=== PATIENT | male | born 1935 | race Caucasian/White ===

== ENCOUNTER → 2017-09-08 | Outpatient (CLI) | payer MEDICARE, OTHER | END | disposition home or self-care (01) | LOC: CFH 10:20 | PROVIDERS: ATTEND Internal Medicine | DX: M51.16 Intervertebral disc disorders with radiculopathy, lumbar region (principal); M41.86 Other forms of scoliosis, lumbar region; M48.061 Spinal stenosis, lumbar region without neurogenic claudication; M79.605 Pain in left leg | CPT/HCPCS: 72148; 72170 ==

== ENCOUNTER 2019-08-29 16:28 | Observation (INO) | payer MEDICARE, OTHER ==
[~2019-08-29] VITALS: Ht 185.4 cm; Wt 97.7 kg
[2019-08-29 17:19] LABS: MEAN CORPUSCULAR HEMOGLOBIN 31.3 pg (27.5-34.5); MEAN CORPUSCULAR HGB CONC 32.8 g/dL (33.2-36.2); MEAN CORPUSCULAR VOLUME 95.4 fL (81-97); MEAN PLATELET VOLUME 8.1 fL (7.4-10.4); PLATELET COUNT 307 x10^3/uL (130-400); RED BLOOD COUNT 4.61 x10^6/uL (4.38-5.82); RED CELL DISTRIBUTION WIDTH 13.4 % (9.4-14.8)
[2019-08-29 17:23] LABS: ALBUMIN 4.1 g/dL (3.4-5.0); ANION GAP 7 mmol/L (5-15); CALCIUM 8.5 mg/dL (8.5-10.1); CHLORIDE 105 mmol/L (98-107); CREATININE 0.96 mg/dL (0.7-1.3)
[2019-08-29 17:27] LABS: TROPONIN I < 0.015 ng/mL (0.000-0.045)
--- NOTE | 2019-08-29 17:32 | NUR ---
PT DESCRIBES CP THAT DEVELOPED WHEN ON [employer]MI[employer]. STATES IT SUBSIDED BUT FEELS IT A LITTLE ON THE RIGHT SIDE CURRENTLY.
--- NOTE | 2019-08-29 17:42 | NUR ---
discussing poc with pt
[2019-08-29] MEDS ORDERED: SODIUM CHLORIDE FLUSH 10ML SYR IVF PRN (18:00)
[2019-08-29 18:05] LABS: MD YES
[2019-08-29 18:10] LABS: BAND#(MANUAL) 0.31 x10^3/uL; BANDS%(MANUAL) 2 % (0-7); EOS#(MANUAL) 0.31 x10^3/uL (0.0-0.4); EOS% (MANUAL) 2 % (1-7); LYMPH#(MANUAL) 5.81 x10^3/uL (1-3.4); LYMPHS% (MANUAL) 38 % (22-44); MONOS#(MANUAL) 0.77 x10^3/uL (0.3-2.7); MONOS% (MANUAL) 5 % (2-9); SEG#(MANUAL) 5.51 x10^3/uL (1.8-6.8); SEGS% (MANUAL) 36 % (42-75)
[2019-08-29 18:12] LABS: <RBC MORPHOLOGY> NORMAL; OTHER CELLS % (MANUAL) 17 % (0-0)
[2019-08-29 18:13] LABS: <PLATELET ESTIMATE> ADEQUATE; <PLT MORPHOLOGY> NORMAL PLT MORPH
--- NOTE | 2019-08-29 18:23 | NUR ---
IV ESTABLISHED AND AWAITING ADMISSION. CONTINUE TO MONITOR
[2019-08-29] MEDS ORDERED: LOSA100T14 PO (18:26)
[2019-08-29] MEDS ORDERED: PRAV40TA2 PO (18:26)
[2019-08-29] MEDS ORDERED: LEVO150T5 PO (18:26)
[2019-08-29] MEDS ORDERED: COLE1TAB2 PO (18:26)
--- NOTE | 2019-08-29 18:30 | NUR ---
REPORT TO SANDY BRICEÑO. AWAITING ROOM TO BE CLEANED BEFORE GOING UPSTAIRS
--- NOTE | 2019-08-29 18:54 | NUR ---
PT AMBULATED ACROSS MENARD TO BATHROOM WITH NO INCREASE IN CP. USED WALKER, STEADY GAIT. REPORT TO NIKHIL.
[2019-08-29] MEDS ORDERED: ONDANSETRON ODT 4 MG PO PRN (20:30)
[2019-08-29] MEDS ORDERED: TEMAZEPAM 15 MG CAPSULE PO PRN (20:30)
[2019-08-29] MEDS ORDERED: NITROGLYCERIN 0.4 MG BOTTLE (25 TABS) SL PRN (20:30)
[2019-08-29] MEDS ORDERED: DOCUSATE 100 MG CAPSULE PO PRN (20:30)
[2019-08-29] MEDS ORDERED: ENOXAPARIN 40 MG/0.4 ML SQ SCH (20:30)
[2019-08-29] MEDS ORDERED: morphine SULFATE 10 MG/ML, 1ML IVPush PRN (20:30)
[2019-08-29] MEDS ORDERED: ACETAMINOPHEN 325 MG TABLET PO PRN (20:30)
[2019-08-29 20:38] VITALS: BP 184/79
[2019-08-29] MEDS ORDERED: PRAVASTATIN 40 MG TABLET PO SCH (21:00)
[2019-08-29] MEDS: LOSARTAN 50MG TABLET PO SCH (21:19)
[2019-08-29 21:25] LABS: TROPONIN I < 0.015 ng/mL (0.000-0.045)
[2019-08-29 22:11] VITALS: BP 143/54
[2019-08-30 02:41] VITALS: BP 146/75
[2019-08-30 02:46] LABS: TROPONIN I < 0.015 ng/mL (0.000-0.045)
[2019-08-30] MEDS ORDERED: ASPI81TA45 PO (04:18)
[2019-08-30] MEDS ORDERED: ALPR0.254 PO (04:20)
[2019-08-30] MEDS ORDERED: UBID10CA5 PO (04:21)
[2019-08-30] MEDS ORDERED: TRAZ50TA66 PO (04:22)
[2019-08-30] MEDS ORDERED: ACET1TAB64 PO (04:23)
[2019-08-30] MEDS ORDERED: CHOL10002 PO (04:25)
[2019-08-30] MEDS ORDERED: ASPIRIN 325 MG TABLET EC PO SCH (06:00)
[2019-08-30 07:34] VITALS: BP 166/75
[2019-08-30] MEDS: LOSARTAN 50MG TABLET PO SCH (08:08)
[2019-08-30] MEDS ORDERED: LOSARTAN 50MG TABLET PO SCH (09:00)
[2019-08-30] MEDS ORDERED: LEVOTHYROXINE 150 MCG TABLET PO SCH (09:00)
[2019-08-30] MEDS ORDERED: REGADENOSON 0.4 MG/5 ML SYRINGE ONE (11:19)
[2019-08-30 12:47] VITALS: BP 126/66
== END 2019-08-30 17:00 | disposition home or self-care (01) ==
LOC: ED 17:59 → INTOOBSV 18:00 → EDIP 18:00 → ED 18:14 → 5SO 20:34 → DCLOUNGE 08-30 17:00
PROVIDERS: ADMIT Internal Medicine; ATTEND Internal Medicine
DX: R07.89 Other chest pain (principal); I10 Essential (primary) hypertension; E78.5 Hyperlipidemia, unspecified; M48.061 Spinal stenosis, lumbar region without neurogenic claudication; I20.9 Angina pectoris, unspecified; G62.9 Polyneuropathy, unspecified; E89.0 Postprocedural hypothyroidism; F41.8 Other specified anxiety disorders; Z79.899 Other long term (current) drug therapy
CPT/HCPCS: 36415; 71045; 78452; 80048; 82040; 84484; 85025; 93005; 93017; 96372; 99284; A9502; G0378; J1650; J2785

== ENCOUNTER → 2020-02-15 | Outpatient (CLI) | payer MEDICARE, OTHER ==
[~2020-02-15] MED LIST: ACET1TAB64 PO; ALPR0.254 PO; ASPI81TA45 PO; CHOL10002 PO; COLE1TAB2 PO; LEVO150T5 PO; LOSA100T14 PO; PRAV40TA2 PO; TRAZ50TA66 PO; UBID10CA5 PO
[2020-02-15 13:10] LABS: MEAN CORPUSCULAR HEMOGLOBIN 31.8 pg (27.5-34.5); MEAN CORPUSCULAR HGB CONC 33.4 g/dL (33.2-36.2); MEAN CORPUSCULAR VOLUME 95.2 fL (81-97); MEAN PLATELET VOLUME 8.5 fL (7.4-10.4); PLATELET COUNT 223 x10^3/uL (130-400); RED BLOOD COUNT 4.28 x10^6/uL (4.38-5.82); RED CELL DISTRIBUTION WIDTH 12.9 % (9.4-14.8)
[2020-02-15 13:54] LABS: ALANINE AMINOTRANSFERASE 24 U/L (12-78); ALBUMIN 3.7 g/dL (3.4-5.0); ANION GAP 8 mmol/L (5-15); CALCIUM 8.2 mg/dL (8.5-10.1); CHLORIDE 104 mmol/L (98-107); CREATININE 0.96 mg/dL (0.7-1.3)
[2020-02-15 14:04] LABS: ALKALINE PHOSPHATASE 72 U/L (45-117); BILIRUBIN,TOTAL 0.7 mg/dL (0.2-1.0); FREE T4 (FREE THYROXINE) 1.23 ng/dL (0.76-1.46)
== END | disposition home or self-care (01) ==
LOC: CFH 08:42
PROVIDERS: ATTEND Internal Medicine
DX: E87.8 Other disorders of electrolyte and fluid balance, not elsewhere classified (principal); E03.9 Hypothyroidism, unspecified; D64.9 Anemia, unspecified
CPT/HCPCS: 36415; 80053; 84439; 84443; 85027

== ENCOUNTER 2020-02-19 08:45 | Outpatient (CLI) | payer MEDICARE, OTHER | END 2020-02-19 23:59 | disposition home or self-care (01) | LOC: CFH 08:45 | PROVIDERS: ATTEND Internal Medicine | DX: I65.23 Occlusion and stenosis of bilateral carotid arteries (principal) | CPT/HCPCS: 93880 ==

== ENCOUNTER 2021-05-04 10:17 | Emergency (ER) | payer MEDICARE, OTHER ==
[~2021-05-04] VITALS: Ht 185.4 cm; Wt 93.0 kg
--- NOTE | 2021-05-04 11:23 | NUR ---
PT RESTING IN CHAIR IN HOSPITAL GOWN. PT HAS AFRIN. NO BLEEDING FROM NOSE AT THIS TIME.
[2021-05-04] MEDS ORDERED: OXYMETAZOLINE NASAL SPRAY 0.05%,30ML ONE ×2 (11:35→11:48)
[2021-05-04] MEDS ORDERED: OXYMETAZOLINE NASAL SPRAY 0.05%, 15ML NAS ONE (12:00)
[2021-05-04 12:05] LABS: MEAN CORPUSCULAR HEMOGLOBIN 31.6 pg (27.5-34.5); MEAN CORPUSCULAR HGB CONC 33.4 g/dL (33.2-36.2); MEAN PLATELET VOLUME 7.5 fL (7.4-10.4); PLATELET COUNT 274 x10^3/uL (130-400); RED BLOOD COUNT 4.02 x10^6/uL (4.38-5.82); RED CELL DISTRIBUTION WIDTH 13.1 % (9.4-14.8)
[2021-05-04 12:14] LABS: ALBUMIN 3.7 g/dL (3.4-5.0); ANION GAP 9 mmol/L (5-15); CALCIUM 9.3 mg/dL (8.5-10.1); CHLORIDE 103 mmol/L (98-107)
[2021-05-04] MEDS ORDERED: SILVER NITRATE STICK TP ONE (12:37)
[2021-05-04 12:51] LABS: BAND#(MANUAL) 0.35 x10^3/uL; BANDS%(MANUAL) 2 % (0-7); MONOS#(MANUAL) 0.52 x10^3/uL (0.3-2.7); MONOS% (MANUAL) 3 % (2-9)
[2021-05-04 12:53] LABS: LYMPH#(MANUAL) 2.44 x10^3/uL (1-3.4); LYMPHS% (MANUAL) 14 % (22-44); OTHER CELLS # (MANUAL) 1.22 x10^3/uL (0-0); REACTIVE LYMPHS # (MANUAL) 0.35 x10^3/uL (0-0); REACTIVE LYMPHS % (MANUAL) 2 % (0-0); SEG#(MANUAL) 12.53 x10^3/uL (1.8-6.8); SEGS% (MANUAL) 72 % (42-75)
--- NOTE | 2021-05-04 12:53 | NUR ---
pt right nare began bleeding after silver nitrate. pt nose clamped. bleeding ceased at this time. pt remains sitting in chair, friend at chair side. will continue to monitor.
[2021-05-04 13:00] LABS: OTHER CELLS % (MANUAL) 7 % (0-0)
[2021-05-04 13:01] LABS: <PLATELET ESTIMATE> ADEQUATE; <PLT MORPHOLOGY> NORMAL PLT MORPH; <RBC MORPHOLOGY> NORMAL
--- NOTE | 2021-05-04 13:11 | NUR ---
PT STILL HAVING SOME LEAKING FROM RIGHT NARE. ERP AWARE. WILL CONTINUE TO MONITOR.
[2021-05-04 14:00] VITALS: BP 133/67
== END 2021-05-04 15:01 | disposition home or self-care (01) ==
LOC: ED 13:18
DX: R04.0 Epistaxis (principal); D72.829 Elevated white blood cell count, unspecified
CPT/HCPCS: 30901; 36415; 80048; 82040; 85025; 99284